=== PATIENT | female | born 2000 | race African-American/Black ===

== ENCOUNTER 2023-01-14 15:54 | Emergency (ER) | payer OTHER ==
[2023-01-14 16:08] VITALS: BP 115/65; PULSE 77; RESP 18; TEMP 98.8; BMI 21.9
[2023-01-14] MEDS ORDERED: ACETAMINOPHEN 1000 MG/100 ML BAG IVPB ONE (16:59)
[2023-01-14] MEDS ORDERED: SODIUM CHLORIDE 0.9% 500 ML INFUS.BAG IV ONE (16:59)
[2023-01-14] MEDS ORDERED: ACETAMINOPHEN INJECTION 100 ML IVPB ONE ×2 (17:10)
[2023-01-14 17:30] LABS: BASO % 0.5 % (0-2.0); EOS % 0.4 % (0-4.5); HEMATOCRIT 39.3 % (32.4-45.2); HEMOGLOBIN 12.8 GM/dL (10.7-15.3); LYMPH % 24.4 % (8-40); MCH 27.1 pg (25.7-33.7); MCHC 32.7 g/dl (32.0-36.0); MEAN PLT VOLUME 10.6 fl (7.5-11.1); MONO % 7.3 % (3.8-10.2); NEUT % 67.4 % (42.8-82.8); PLATELET COUNT 147 10^3/uL (134-434); RBC 4.73 M/mm3 (3.60-5.2); RDW 15.9 % (11.6-15.6); WHITE BLOOD COUNT 5.8 K/mm3 (4.0-10.0)
[2023-01-14 17:45] LABS: CHLORIDE 102 mmol/L (98-107); SODIUM 138 mmol/L (136-145)
[2023-01-14 17:49] LABS: CALCIUM 9.8 mg/dL (8.5-10.1)
[2023-01-14 17:50] LABS: ALBUMIN 4.5 g/dl (3.4-5.0); ANION GAP 11 MMOL/L (8-16); BLOOD UREA NITROGEN 8.5 mg/dL (7-18); CO2 25 mmol/L (21-32); GLUCOSE,RANDOM 78 mg/dL (74-106); LIPASE 146 U/L (73-393)
[2023-01-14 17:51] LABS: SGPT/ALT 17 U/L (13-61)
[2023-01-14 17:53] LABS: BILIRUBIN,TOTAL 1.8 mg/dL (0.2-1); CREATININE 0.8 mg/dL (0.55-1.3); SGOT/AST 26 U/L (15-37); TOT PROT 8.1 g/dl (6.4-8.2)
[2023-01-14 17:55] LABS: ALK PHOS 48 U/L (45-117)
[2023-01-14 18:28] LABS: ERYTHROCYTE SEDIMENTATION RATE 7 mm/hr (0-20)
[2023-01-14 19:11] LABS: HCG,QUALITATIVE URINE Negative
[2023-01-14 19:40] LABS: EPI CELLS >36 /uL (0-25.1); HYALINE CASTS 1 /uL (0-3.1); PH,URINE 5.5 (5.0-8.0); URINE APPEARANCE CLOUDY; URINE BACTERIA 1749 /uL (0-1359); URINE BILIRUBIN NEGATIVE (NEGATIVE); URINE COLOR YELLOW; URINE GLUCOSE (UA) NEGATIVE (NEGATIVE); URINE KETONE 2+ (NEGATIVE); URINE LEUK ESTERASE 1+ (NEGATIVE); URINE NITRITE NEGATIVE (NEGATIVE); URINE PROTEIN NEGATIVE (NEGATIVE); URINE RBC 9 /uL (0-23.9); URINE UROBILINOGEN 0.2 mg/dL (0.2-1.0); URINE WBC 80 /uL (0-25.8)
== END 2023-01-14 19:57 | disposition home or self-care (01) ==
LOC: JER 15:54
PROC: 3E033NZ Introduction of Analgesics, Hypnotics, Sedatives into Peripheral Vein, Percutaneous Approach (ICD-10-PCS; principal; 2023-01-14)
DX: R10.31 Right lower quadrant pain (principal); R11.2 Nausea with vomiting, unspecified; R50.9 Fever, unspecified
CPT/HCPCS: 36415; 76830-TC; 76856-TC; 80053; 81003; 83690; 84703; 85025; 85651; 86140; 86850; 86900; 86901; 87086; 99284-25

== ENCOUNTER 2023-04-03 12:50 | Emergency (ER) | payer OTHER ==
[2023-04-03 12:57] VITALS: TEMP 98.1; BMI 24.7
[2023-04-03] MEDS ORDERED: ONDANSETRON 4 MG/2 ML VIAL IVPUSH ONE ×2 (14:19→18:30)
[2023-04-03] MEDS ORDERED: SODIUM CHLORIDE 0.9% 500 ML INFUS.BAG IV ONE (14:20)
[2023-04-03] MEDS ORDERED: ONDANSETRON 4 MG/2 ML VIAL ONE ×2 (14:26→18:30)
[2023-04-03 15:03] LABS: BASO % 0.2 % (0-2.0); HEMATOCRIT 40.1 % (32.4-45.2); HEMOGLOBIN 13.2 GM/dL (10.7-15.3); LYMPH % 7.6 % (8-40); MCH 27.8 pg (25.7-33.7); MCHC 32.9 g/dl (32.0-36.0); MEAN CELL VOLUME 84.3 fl (80-96); MEAN PLT VOLUME 10.7 fl (7.5-11.1); MONO % 4.4 % (3.8-10.2); NEUT % 87.8 % (42.8-82.8); PLATELET COUNT 174 10^3/uL (134-434); RBC 4.75 M/mm3 (3.60-5.2)
[2023-04-03 15:27] LABS: POTASSIUM 4.1 mmol/L (3.5-5.1)
[2023-04-03 15:31] LABS: ALBUMIN 4.5 g/dl (3.4-5.0); BLOOD UREA NITROGEN 9.4 mg/dL (7-18)
[2023-04-03 15:33] LABS: CREATININE 0.8 mg/dL (0.55-1.3)
[2023-04-03 15:34] LABS: TOT PROT 8.5 g/dl (6.4-8.2)
[2023-04-03 16:17] LABS: EPI CELLS >36 /uL (0-25.1); HYALINE CASTS 2 /uL (0-3.1); PH,URINE 5.5 (5.0-8.0); URINE APPEARANCE CLEAR; URINE BACTERIA 71 /uL (0-1359); URINE BILIRUBIN NEGATIVE (NEGATIVE); URINE COLOR RED; URINE GLUCOSE (UA) NEGATIVE (NEGATIVE); URINE KETONE 1+ (NEGATIVE); URINE LEUK ESTERASE 2+ (NEGATIVE); URINE NITRITE NEGATIVE (NEGATIVE); URINE PROTEIN 2+ (NEGATIVE); URINE WBC 193 /uL (0-25.8)
[2023-04-03 16:43] LABS: URINE RBC 7714.5 /uL (0-23.9); YEAST NONE SEEN (NEGATIVE)
[2023-04-03] MEDS ORDERED: ACETAMINOPHEN 1000 MG/100 ML BAG IVPB ONE (16:44)
[2023-04-03] MEDS ORDERED: ACETAMINOPHEN INJECTION 100 ML IVPB ONE (16:53)
[2023-04-03] MEDS ORDERED: KETOROLAC TROMETHAMINE 15 MG/ML VIAL IVPUSH ONE (17:47)
[2023-04-03] MEDS ORDERED: KETOROLAC TROMETHAMINE 15 MG/ML VIAL ONE (17:50)
[2023-04-03 20:46] LABS: EPI CELLS 12 /uL (0-25.1); HYALINE CASTS 0 /uL (0-3.1); URINE APPEARANCE Clear; URINE BACTERIA 3 /uL (0-1359); URINE BILIRUBIN Negative (NEGATIVE); URINE COLOR Yellow; URINE GLUCOSE (UA) Negative (NEGATIVE); URINE KETONE 15 mg/dl (NEGATIVE); URINE LEUK ESTERASE Negative (NEGATIVE); URINE NITRITE Negative (NEGATIVE); URINE PROTEIN Trace (NEGATIVE); URINE RBC 35 /uL (0-23.9); URINE WBC 7 /uL (0-25.8)
[2023-04-03] MEDS ORDERED: IBUPROFEN 400 MG TABLET (FP) PO ONE (21:20)
[2023-04-03 21:25] VITALS: BP 120/74; PULSE 64; RESP 12
[2023-04-03] MEDS ORDERED: KETOROLAC TROMETHAMINE 30 MG/1 ML VIAL IVPUSH ONE (21:26)
[2023-04-03] MEDS ORDERED: KETOROLAC TROMETHAMINE 30 MG/1 ML VIAL ONE (21:28)
== END 2023-04-03 21:53 | disposition home or self-care (01) ==
LOC: JER 12:50 → JERFT 12:50
PROC: 3E033NZ Introduction of Analgesics, Hypnotics, Sedatives into Peripheral Vein, Percutaneous Approach (ICD-10-PCS; principal; 2023-04-03)
PROC: 3E033GC Introduction of Other Therapeutic Substance into Peripheral Vein, Percutaneous Approach (ICD-10-PCS; 2023-04-03)
PROC: 3E033GC Introduction of Other Therapeutic Substance into Peripheral Vein, Percutaneous Approach (ICD-10-PCS; 2023-04-03)
PROC: 3E033NZ Introduction of Analgesics, Hypnotics, Sedatives into Peripheral Vein, Percutaneous Approach (ICD-10-PCS; 2023-04-03)
PROC: 3E033NZ Introduction of Analgesics, Hypnotics, Sedatives into Peripheral Vein, Percutaneous Approach (ICD-10-PCS; 2023-04-03)
DX: R10.2 Pelvic and perineal pain (principal); R11.2 Nausea with vomiting, unspecified
CPT/HCPCS: 36415; 74177-TC; 76830-TC; 80053; 81003; 83690; 84703; 85025; 86304; 87086; 99284-25; Q9967